=== PATIENT | male | born 1945 | race Caucasian/White ===

== ENCOUNTER 2020-06-02 11:27 | Inpatient (IN) | payer MEDICARE, OTHER ==
[~2020-06-02] VITALS: Ht 193 cm; Wt 69.4 kg
--- OUTSIDE RECORDS SUMMARY | 2020-06-02 11:30 | XMS ---
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 Frank has no Care Guidelines for this patient. Mirtha VISIT COUNT (12 MO.) 1 BEHZAD Womack TOTAL 1 NOTE: Visits indicate total known visits. ED/UCC VISIT TRACKING (12 MO.) 06/02/2020 11:27 BEHZAD Zaragoza OR TYPE: Emergency COMPLAINT: - LOC/ALTERED MENTAL STATUS INPATIENT VISIT TRACKING (12 MO.) No inpatient visits to display in this time frame [id number]
[2020-06-02] MEDS ORDERED: PREDNISONE5 MG PO (12:04)
[2020-06-02] MEDS ORDERED: TRAMADOL HCL50 MG PO (12:04)
[2020-06-02] MEDS ORDERED: CYCLOBENZAPRINE10 MG PO (12:05)
[2020-06-02] MEDS ORDERED: LEVOTHYROXINE150 MCG PO (12:05)
[2020-06-02] MEDS ORDERED: TIZANIDINE HCL2 M1 PO (12:05)
--- NOTE | 2020-06-02 16:41 | EKG ---
[facility] [address] [place], [place] [address] Signed Sinus tachycardia Possible Right ventricular hypertrophy Possible Lateral infarct , age undetermined Inferior infarct , age undetermined Abnormal ECG No previous ECGs available Confirmed by EMMA AUSTIN DO ([id number]) on 06/02/2020 4:40:51 PM Electronically Signed By: EMMA AUSTIN DO 06/02/20 1641 PATIENT NAME: JOVANIFILIPE Electrocardiogram DATE OF : 49 PHYSICIAN: EMMA AUSTIN DO REPORT #: [id number] REPORT IS CONFIDENTIAL AND NOT TO BE RELEASED WITHOUT AUTHORIZATION
--- NOTE | 2020-06-02 18:49 | NUR ---
PATIENT ADMITTED TO MED SURG, ADMISSION ASSESSMENT FOR FEED MANAGEMENT ADVISOR TO DO. PATIENT TRANSFERRED TO BED VIA 4 STAFF AND SLIDE SHEET. PATIENT HAS LR @ 125 INFUSING TO RIGHT FOREARM. DAUGHTER IN ROOM FOR TRANSFER, WENT HOME TO CHECK ON MOM, AND WILL RETURN. PATIENT HAS LEGS ON PILLOW, SEVERE CONTRACTIONS PRESENT ON BOTH UPPER AND LOWER EXTREMITIES. PATIENT HAS SUPERFICIAL SKIN BREAKDOWN, STAGE 1, TO BOTH BUTTOCKS AND SCROTAL AREA. PATIENT IS SLEEPY AFTER MOVING, APPEARS TO BE COMFORTABLE.
--- NOTE | 2020-06-02 20:45 | NUR ---
V/S AND I&O TAKEN AND RECORDED. MARTINO CARE DONE. PATIENT REFUSED TO BED REPOSITIONED STATED HE IS COMFORTABLE NOW. CALL LIGHT ON HAND.
--- NOTE | 2020-06-02 20:55 | NUR ---
TURNED, COOP, ALERT AND ORIENTED, IV SITES X2 PATENT. DRY SCALY SKIN, LOTIONS APPLIED, RED AREA L LOW SCROTAL SAC AND RAYA ARE, BARRIER CREAM APPLIED, F/C PATENT, CARE DONE AND HS CARE DONE. TOLERATING FLUIDS WELL. BANDAID OVER BRIDGE OF NOSE IN PLACE. CONTRACTURES AT ELBOWS, WRIST, FINGERS, LE BELOW KNEES ARS, R MORE THAN LEFT, LEVATED IN PILLOWS. ON ROOM AIR, DIM AT BASES, NO C/O ADVERSE REACTION TO ABX, THYROID MED 150MCG GIVEN PER ORDERS AT THIS TIME. CALL LIGHT AT HANDS REACH
--- NOTE | 2020-06-02 22:55 | NUR ---
comfortable, daughter in room,
--- NOTE | 2020-06-02 23:48 | NUR ---
c/o 4/10 shoulders and generalized pain, medicated with oxycodone 5mg po, declines to be repositioned, daughter in room had repositioned pt earlier.
--- NOTE | 2020-06-03 02:25 | NUR ---
AWAKES EASILY, DECLINES TO BE TURNED, DAUGHTER STATES SHE REPOSITIONED HIS LEG AND HEAD EARLIER. PT DENIES C/O PAIN, IVF INFUSING, TOOK SIPS OF FLUIDS. F/C WITH SMALL AMOUNT OF UO, DAUGHTER STATES THAT HE DOES NOT URINATES MUCH AT NIGHT BUT HE DOES DURING THE DAY. FALL AND ASPIRATION PRECAUTIONS INPLACE.
--- NOTE | 2020-06-03 04:47 | NUR ---
Resting, no jessica distress, IVF infsuing, f/c patent. family at bedside
--- NOTE | 2020-06-03 06:00 | NUR ---
PT HAS SLEPT OFF AND ON THIS SHIFT, HAD DECLINED TO BE TURNED, BUT TURNED AT THIS TIME. CONTRACTURES OF ALL EXTREMITIES, HANDS AND FEET PRESENT, SKIN DRY AND FLAKY. RED AREAS L SCROTAL SAC, RAYA AREA AND BUTTOCKS AREA, BARRIER CREAM APPLIED. F/C INSERTED IN ED, NOT CHRONIC, VOIDING MEDIUM YELLOW URINE QS. IVF INFUSING, NO ADVERSE REACTION TO IV ABX. MEDICATED WITH OXYCODONE 5MG X2 AND FLEXERIL PER C/O SHOULDERS AND GENERALIZED PAIN. EFFECTIVE. tOLERATING LIQUIDS WELL. oN ROOM AIR, LUNGS WITH FAINT CRACKLES AT BASES. NO RESP DISTRESS. 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 ALERT AND ORIENTED.
--- NOTE | 2020-06-03 07:17 | NUR ---
Jess from lab called with + anaerobic BC ON BOTH R AND L ARM GROWTH OF GRAM+ COCCI W CLUSTERS, INCOMING ROBERT MARINELLI NOTIFIED, HE IS TO CALL THIS AM.
--- NOTE | 2020-06-03 08:10 | NUR ---
DR AUSTIN CALLED AT [facility] AND NOTIFIED OF THE BLOOD CULTURE RESULTS.
--- NOTE | 2020-06-03 08:11 | NUR ---
PT RESTING IN HIS BED AND STATES HIS PAIN IS NOW A 4 WHICH IS CHRONIC AND ACCEPTABLE TO HIM AT THIS TIME. PT DECLINES TO BE TURNED STATING HIS DAUGHTER HAD RECENTLY REPOSITIONED HIM. HE AGREES TO A BED BATH LATER AND STATES I CAN CHECK HIS SKIN AT THIS TIME. PT HAS CONTRACTURES WITH PAIN AND POOR MOVEMENT THROUGHOUT. PT NOT ORIENTED TO DATE WHICH THE PT'S DAUGHTER STATES IS NORMAL FOR HIM. PT ORIENTED OTHERWISE. SEE ASSESSMENT.
--- NOTE | 2020-06-03 09:37 | NUR ---
COCCYX, BUTTOCKS, AND SCROTUM ALL RED, BARRIER CREAM APPLIED TO ALL AREAS AND PT REPOSITIONED THE PT OFF OF THESE AREAS. TURNING AND REPOSITIONING EDUCATION GIVEN TO THE PT AND HIS DAUGHTER (LINDA) WITH GOOD UNDERSTANDING STATED.
--- NOTE | 2020-06-03 10:59 | NUR ---
PT SLEEPING AT THIS TIME.
--- NOTE | 2020-06-03 11:29 | NUR ---
PT AWOKE FROM HIS NAP AND HE WAS REPOSITIONED AT THIS TIME. HE STATES HIS PAIN LEVEL IS ABOUT THE SAME AND HE DENIES THE NEED FOR ANY PAIN MEDICATION AT THIS TIME.
[2020-06-03] MEDS ORDERED: CRANBERRY200 MG PO (12:50)
--- NOTE | 2020-06-03 12:50 | NUR ---
NO NOTED CHAGES IN CONDITION. PT STATES HIS JOINT PAIN AT A 6 WHICH HE WAS RECENTLY TREATED FOR. SEE ASSESSMENT.
--- NOTE | 2020-06-03 12:51 | NUR ---
MED REC COMPLETE
--- NOTE | 2020-06-03 14:15 | NUR ---
I ASKED PATIENT IF HE WOULD LIKE TO BE REPOSITIONED AND HE SAID NO BECAUSE HE IS COMFORTABLE FOR RIGHT NOW. DAUGHTER IS IN ROOM.
--- NOTE | 2020-06-03 16:01 | NUR ---
Pt resting in his bed and he states he is comfortable and declines to be repositioned at this time.
--- NOTE | 2020-06-03 16:17 | NUR ---
PT NOW STATES HIS IS HAVING SOME PAIN AND WAS MEDICATED ORDERED. PT WAS JUST REPOSITIONED BY HIS DAUGHTER.
--- NOTE | 2020-06-03 17:35 | NUR ---
PT REPOSITIONED IN HIS BED BY HIS DAUGHTER. HE DENIES ANY NEEDS AND STATES HIS PAIN IS WELL CONTROLED AT THIS TIME.
--- NOTE | 2020-06-03 18:14 | NUR ---
Pt states he is comfortable and he is watching the new at this time and he denies any needs.
--- NOTE | 2020-06-03 19:23 | NUR ---
PATIENT DAUGHTER HELPED ME THIS MORNING WE GAVE HIM A BED BATH AND SHAMPOOED HIS HAIR. NEW GOWN. AND REPOSITIONED HIM.
--- NOTE | 2020-06-03 20:34 | NUR ---
Awake, alert and oriented, declines to be repositioned, aware that we need to reposition him, ok to come back at [phone] and moved med" stated. on room air. ivf infusing, sl patent. tolerating liquids well, drinking water from [facility] water receptacle brought from home by family. hob elevated. Coop with assessment. all4 limbs contractures w/o changes. red areas on psjctrm-[id number]-hlsx area present, barrier cream applied. f/c draining small amounts of yellow urine with whit sediments. normal odor. call light at hands.
--- NOTE | 2020-06-03 20:42 | NUR ---
report via phone [phone] to daughter Joan
--- NOTE | 2020-06-03 20:55 | NUR ---
SUPERVISOR CHAR HOUSE ROUNDING NOTE. PT RESTING IN BED WATCHING TV. PT REQUESTS BLANKET TO SHOULDERS, AND WASH RAG REPOSITIONED UNDER HIS CHIN. PT DENIES FURTHER NEEDS. CALL LIGHT IN REACH. WHITE BOARD UDPATED.
--- NOTE | 2020-06-03 21:58 | NUR ---
Repositioned in bed, coop
--- NOTE | 2020-06-04 02:40 | NUR ---
states comfortable, declines need to repositon self. heel protectors at elbows and heel, legs elevated. ivf infusing, f/c draining low md joey aware
--- NOTE | 2020-06-04 05:38 | NUR ---
PT HAS BEEN MEDICATED X2 WITH OXYCODONE 5MG X2 PER GENERALIZED PAIN, TOLERATED WELL, REPOSITIONED 3X THI SHIFT, ELBOW AND HEEL PROTECTORS IN PLACE, ALL 4 EXTREMITIES CONTRACTURS, BARRIER CREAM TO RED AREAS ON SCROTUM, BETWEEN BUTTOCKS AND RAYA AREA. F/C PATENT, DRAINED 1300CC LIGHT XIMENA COLORED URINE. PT DRINKING QS FLUIDS FROM KAMEL BACK FLUID SLEEVE BROUGHT FROM HOME. PT ABLE TO HOLD BETWEEN FINGERS AND DRINK W/O HELP, TOLERATING WELL, NO N/V, ASPIRATION PRECAUTIONS IN PLACE, PT ON ROOM AIR, IVF INFUSING W/O PROBLEMS, NO C/O ADVERSE REACTION TO IV ABX. VANCOMYCIN THROUGH TO BE DRAWN TODAY AT 1130. STILL WAITING ON COVID RESULTS. PT ALERT AND ORIENTED, AFEBRILE, WAITING FOR HOSPICE CONSULT.
--- NOTE | 2020-06-04 07:22 | NUR ---
0720: Pt sleeping at this time. Bailey within reach. Report received from Lizbeth JONES.
--- NOTE | 2020-06-04 09:11 | NUR ---
PT RESTING IN HIS BED AND STATES HIS PAIN IS CONTROLED. HE DECLINES TO BE TURNED AT THIS TIME STATING HE IS COMFORTABLE. WILL REASSESS THE SKIN LATER WHICH THE PT AGREES TO. MARTINO DRAINING CLEAR YELLOW URINE AT THIS TIME. SEE ASSESSMENT.
--- NOTE | 2020-06-04 09:19 | NUR ---
PT BEING FED BY THE FIREPERSON AT THIS TIME.
--- NOTE | 2020-06-04 10:26 | NUR ---
While to pt was up to the bedside commode this novoa cath slid out. It was notied by the JUNIOR WEB DEVELOPER and his daughter who were helping him that the baloon was ruptured. The baloon appears to be intact with a slit in the side of it. The pt has an open area on his left buttock that is through the first layer of skin and measures 1.5x5 cm. The site was cleaned with wound wash sprayed with skin barrier and an allevyn was applied. The pt also continues to have redness noted to the coccyx, buttocks and scrotum. Dr Byers was called and notiifed of the novoa and the skin breakdown with new orders given. A condom cath was applied as ordered.
--- NOTE | 2020-06-04 11:45 | NUR ---
Pt states he is feeling "better" at this time. Dr Byers in the room speaking with the pt and his daughter at this time.
--- NOTE | 2020-06-04 11:52 | NUR ---
THIS MORNING THE DAUGHTER AND I TRANSFERED HIM FROM HIS BED TO THE BED SIDE COMMODE. WHILE SITTING ON THE BED SIDE COMMODE THE DAUGHTER AND I GAVE HIM A BED BATH AND CHANGED HIS BED LINENS. NURSE GOT HIM A WARM BLANKET.
--- NOTE | 2020-06-04 12:25 | NUR ---
PT APPEARS COMFORTABLE AND IS WATCHING HIS TABLET WITH EAR BUDS IN AT THIS TIME.
--- NOTE | 2020-06-04 13:14 | NUR ---
PT STATES HE IS HAVING SOME GENERALIZED PAIN AND WAS MEDICATED ORDERED, SEE EMAR. SEE ASSESSMENT.
--- NOTE | 2020-06-04 15:09 | NUR ---
Pt denies any pain at this time. He states he was recently repositioned by his daughter and declines to now be repositioned.
--- NOTE | 2020-06-04 15:24 | NUR ---
Pt has not voided since his novoa came out and the condom cath was placed. Felipe states he feels fine with no distention noted. He states he will attempt to void and will notify me after he voids. Will continue to monitor.
--- NOTE | 2020-06-04 15:41 | NUR ---
Due to the pt's lack of void he was bladder scanned for [address] Byers was called and notified. If no void in a few hours rescan and notify Dr Byers, per Dr Byers.
--- NOTE | 2020-06-04 16:23 | NUR ---
Pt has voided 75 ml via his condom cath at this time, will continue to monitor.
--- NOTE | 2020-06-04 17:26 | NUR ---
Pt repositioned at this time.
--- NOTE | 2020-06-04 17:49 | NUR ---
Dr Byers called and notified of the pt's dark concentrated urine of 75 ml over the last 8 hours. New orders received.
--- NOTE | 2020-06-04 17:58 | NUR ---
Pt denies any pain or problems at this time.
--- NOTE | 2020-06-04 18:45 | NUR ---
PT VOIDED 225 ML OF DARK URINE WHICH IS FAN MAIL EDITOR IN COLOR THAN HIS LAST VOID.
--- NOTE | 2020-06-04 19:31 | NUR ---
awake, alert and oriented, visiting with family, no c/o pain
--- NOTE | 2020-06-04 21:31 | NUR ---
Repositioned in bed, tolerated well, on room air, bandaid over bridge of nose all extremities contractures, allevyn in between buttocks area, redness over periarea and l scrotal sac, barrier cream applid, condom cath in place, draining small amounts of dark yellow urine, pt tolerating well. drinking qs fluids from [facility] [employer] water reservoir brought from home. watching tv, medicatrred with oxycodone 10mg po 5/10 generalized pain.
--- NOTE | 2020-06-05 02:15 | NUR ---
RESTING, NO FURTHER C/O PAIN, DECLINES TO BE REPOSITIONED. NO C/O ADVERSE REACTION TO ABX. CONDOM CATH PATENT. FAMILY IN ROOM
--- NOTE | 2020-06-05 02:41 | NUR ---
PT CALLED FOR PAIN MEDICATION. IV SITE PINK, ASSESSMENT FURTHER, NOTED INFILTRATION. IV DC'D
--- NOTE | 2020-06-05 04:30 | NUR ---
PT AWAKE AT THIS TIME VISITING WITH DAUGHTER. PT ON ROOM AIR, CLEAR LUNGS, ABD SOFT, HAD A BM 06/04, ALL EXTREMITIES AND R NECK CONTRACTURES. TURNED 2X THIS SHIFT, DECLINES TO TURN BUT DAUGHTER DOES REPOSITONS HIS LEGS AND ARMS. PT TOLERATING FLUIDS WELL, USES HOME BROUGHT KAMEL BACK WATER RESERVOIR BAG WELL. HAS CONDOM CATH IN PLACE, DRAINING QS URINE. REDNESS OF L SCROTUM, RAYA AREA AND BUTTOKC W ALLEVYN DRESSINGL BUTTOCKS AREA. HAS BEEN MEDICATED WITH OXYCODONE 10MG PER GENERALIZED PAIN WITH GOOD PAIN RELIEF, WAITING ON HOSPICE CONSULT, HIGH FALL AND ASPIRATION PRECAUTIONS INPLACE. PT NEEDS HELPS WITH ADLS AND FEEDING, CONT TO REINFORCE NEED FOR Q2H/PRN RESPOSITIONING TO PREVENT PRESSURE ULCERS
--- NOTE | 2020-06-05 08:13 | NUR ---
PATIENT RESTING IN BED. DAUGHTER IN ROOM. CONDOM CATH STILL IN PLACE. RECIEVED WARM WASH CLOTH FOR FACE. WHITE BOARD UPDATED. CALL LIGHT WITHIN REACH. NO FURTHER NEEDS AT THIS TIME.
--- NOTE | 2020-06-05 10:10 | NUR ---
SPOKE WITH PATIENT IN ROOM. PATIENT IS [place]. STATES HE LIVES WITH AND DAUGHTER LINDA LIVES LESS THAN A MILE DOWN THE ROAD. HE STATES HE IS "BEDRIDDEN". STATES HE DOESN'T REALLY KNOW SOME OF THE QUESTIONS "MY AND DAUGHTER DO THAT STUFF". WHEN ASKED IF HE WANTS SOME INFORMATION ON HOSPICE, HE STATES "YES, WE WANT TO LOOK INTO THAT, BUT CAN YOU TALK WITH MY DAUGHTER?" TRIED TO CALL DAUGHTER LINDA STONE [phone]. LEFT MESSAGE FOR CALL BACK.
--- NOTE | 2020-06-05 14:22 | NUR ---
PATIENT RESTING IN BED. DAUGHTER IN ROOM. CALL LIGHT WITHIN REACH. WILL CHECK AGAIN LATER. NO FURTHER NEEDS AT THIS TIME.
--- NOTE | 2020-06-05 15:10 | NUR ---
PATIENT RESTING IN BED. WATER REFRESHED AND MOVED IN BED. CALL LIGHT WITHIN REACH. DAUGHTER IN ROOM. NO FURTHER NEEDS AT THIS TIME.
--- NOTE | 2020-06-05 15:15 | NUR ---
APPARANTLY DAUGHTER LINDA WAS HERE THEN LEFT. TRIED TO REACH HER AT HOME AGAIN. MESSAGE LEFT FOR CALLBACK.
--- NOTE | 2020-06-05 16:31 | NUR ---
MET WITH PATIENTS DAUGHTER LINDA IN WAITING AREA. SHE STATES HER MOM HAS HAD A LOT OF MEDICAL ISSUES AND DOES NOT THINK CLEARLY. SHE STATES HER DAD HAS NOT WALKED IN 12 YEARS, AND HAS BEEN MOSTLY BEDBOUND FOR 4 YEARS. SHE STATES HIS MIND HAS BEEN ACTIVE AND CLEAR. 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 SHE STATES HE HAS BEEN CONFUSED JUST FOR A LITTLE WHILE THIS WEEK. IT IS WHY SHE FINALLY CONVINCED HIM TO COME IN. SHE STATES HE DOES NOT LIKE GOING TO THE DOCTOR. HIS PCP JAVI PAL COMES TO THE HOUSE TO SEE HIM. SHE WAS THERE JUST FOUR DAYS AGO. SHE STATES HER DAD DOESN'T WANT TO HAVE TO BE IN THE HOSPITAL AND DEAL WITH BEING POKED AND WORKED ON. THEY HAVE TALKED ABOUT HOSPICE. SHE STATES HIS COMPANY HAS OFFERED TO FLY HIM BY MEDICAL TRANSPORT TO A [facility] SETTING FOR SPECIALISTS. BUT HE HAS NOT ACCEPTED THIS. 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 SHE STATES NO ONE HAS POA, BUT THEY ARE GOING TO CONTACT THE GLASS CARRIER THEY KNOW TO FINALIZE PAPERWORK. SHE STATES HE HAS MEDICARE AND THEN THEY HAVE FUNDS TO PAY FOR WHAT ELSE IS NEEDED. 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 HE HAS POWER CHAIR. SHE STATES WHEN HE GOES ON HOSPICE THEY WILL NEED A HOSPITAL BED. WE DISCUSSED POSSIBLE HOSPICE AGENCIES AVAILABLE. THEY WOULD LIKE TO GO WITH [facility]. 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 SHE STATES THEY ALL LIVE CLOSE ON THE FARM BUT SHE WILL PROBABLY TAKE HIM TO HER HOME SO SHE CAN BE THERE. SHE IS RETIRED NOW. QUESTIONS ANSWERED. SHE STATES THEY WOULD LIKE THE ANTIBIOTIC THERAPY FINISHED THIS TIME, THEN HOME WITH HOSPICE. DISCUSSED I WILL CALL [facility] TOMORROW. CM WILL FOLLOW NEEDED.
--- NOTE | 2020-06-05 18:15 | NUR ---
PATIENT REPOSITIONED IN BED. CALL LIGHT WITHIN REACH NO FURTHER NEEDS AT THIS TIME. VISITING WITH SON IN ROOM.
--- NOTE | 2020-06-05 19:49 | NUR ---
BEDSIDE REPORT RECEIVED FROM ROBERT PEARSON. pt RESTING IN BED. DENIES REQUESTS AT THIS TIME. CALL LIGHT IN REACH. FAMILY AT BEDSIDE.
--- NOTE | 2020-06-05 21:07 | NUR ---
pt ASSESSMENT COMPLETE. RATES PAIN 5-6/10 "ALL OVER, IT WILL BE GOOD IF WE KEEP IT RIGHT HERE". PRN MEDICATION ADMINISTERED. REPOSITIONED. FAMILY AT BEDSIDE. VSS. CALL LIGHT IN REACH.
--- NOTE | 2020-06-05 23:33 | NUR ---
pt AWAKE IN ROOM, WATCHING TV. IV ANTIBIOTIC INFUSING ORDERED. CONCRETE BUCKET LOADER SINTA IN ROOM EMPTYING URINE FROM CATHTER. DAUGHTER AT BEDSIDE. NO REQUESTS AT THIS TIME.
--- NOTE | 2020-06-06 01:20 | NUR ---
IN pt ROOM FOR IV ANTIBIOTIC ADMINISTRATION. pt SLEEPING, BREATHING UNLABORED. DAUGHTER AT BEDSIDE. MARTINO DRAINING YELLOW URINE.
--- NOTE | 2020-06-06 03:29 | NUR ---
pt SLEEPING, AWAKENS TO VOICE FOR REPOSITIONING. pt RATES PAIN 5-5.5/10, PRN PAIN MEDICATION ADMINISTERED. REPOSITIONED IN BED WITH INFECTIOUS WASTE TECHNICIANHafsa ANDRESW ASSIST. ASSESSMENT COMPLETE. CALL LIGHT AND REMOTE IN REACH. DAUGHTER IN ROOM.
--- NOTE | 2020-06-06 06:50 | NUR ---
pt SLEEPING, AWAKENS TO VOICE FOR VS. PRN PAIN MEDICATION ADMINISTERED FOR 5/10 REPORTED PAIN. SCHEDULED ANTIBIOTIC INFUSING WNL ORDERED. pt REFUSES REPOSITIONING AT THIS TIME, REQUESTING TO GO BACK TO SLEEP. DRINKS OF WATER PROVIDED. CALL LIGHT IN REACH. DAUGHTER IN ROOM.
--- NOTE | 2020-06-06 07:31 | NUR ---
REPORT RECEIVED. PT IN BED WITH EYES CLOSED. CALL LIGHT IN REACH
--- NOTE | 2020-06-06 08:36 | NUR ---
PATIENT STILL ASLEEP. FAMILY IN ROOM. CALL LIGHT WITHIN REACH. WILL CHECK BACK WITH PATIENT LATER.
--- NOTE | 2020-06-06 09:26 | NUR ---
H&P, progess notes, medicare card, face sheet, covid test, faxed to [facility].
--- NOTE | 2020-06-06 11:15 | NUR ---
PT REPORTING 6/10 PAIN. REQUESTING PAIN MEDS AND FLEXERIL. MEDICAITONS ADMINISTERED.
--- NOTE | 2020-06-06 12:35 | NUR ---
ABX STARTED. PT REPORTING PAIN 02/10. DENIES NEED FOR REPOSITIONING. FAMILY AT BEDSIDE.
--- NOTE | 2020-06-06 13:00 | NUR ---
Called and spoke with Yordan from [facility] as I have not received a return call. She states she has received the chart, they are working on it.
--- NOTE | 2020-06-06 13:47 | NUR ---
PATIENT REPOSITIONED. VISITING WITH SON IN ROOM. CALL LIGHT WITHIN REACH. NO FURTHER NEEDS AT THIS TIME.
--- NOTE | 2020-06-06 14:00 | NUR ---
REPORTSITIONED NAD CHANGED LINENS.. PT TOLERATED WELL. PERSONAL ITMES WITHIN REACH.
--- NOTE | 2020-06-06 18:24 | NUR ---
IN TO REASSESS PAIN. REPORTS PAIN 5/10. FINISHED DINNER. REPORTS EATING TOO MUCH. NOW COUGHING UP FOOD FROM DINNER HE REPORTS BEING STUCK IN ESOPHOGOUS. BREATHING WITH NO PROBLEMS. OFFERED SUCTION AND PT REFUSED. ELEVATED HOB. EMESIS BAG PROVIDED. NO VOMITING, JUST THICK WHITE MUCOUS PRESENT.
--- NOTE | 2020-06-06 18:38 | NUR ---
ASKED PATIENT THREE TIMES FOR 1800 VITALS. PATIENT REFUSED. ROBERT PEARSON AND ROBERT BILLINGS NOTIFIED.
--- NOTE | 2020-06-06 19:30 | NUR ---
BEDSIDE REPORT RECEIVED FROM ROBERT PEARSON. pt AWAKE, SITTING UP IN BED, SOME REGURGITATION NOTED AFTER EATING DINNER PER pt. DENIES NEED, WATER IN REACH. pt RATES PAIN "LOW 5". CALL LIGHT IN REACH. SON AT BEDSIDE.
--- NOTE | 2020-06-06 21:09 | NUR ---
pt AWAKE, CONTINUES TO SPIT CLEAR LIQUID. ASSESSMENT COMPLETE. RATES PAIN 5/10. UNABLE TO ADMINISTER PO MEDICATIONS AT THIS TIME. IV ANTIBIOTIC INFUSING WNL ORDERED. ASSISTED TO REPOSITION. CONDOM CATHETER EMPTIED. CALL LIGHT IN REACH. FAMILY AT BEDSIDE.
--- NOTE | 2020-06-06 23:50 | NUR ---
pt AWAKE, WATCHING MOVIE ON TABLET. SON AT BEDSIDE. IV ANTIBIOTIC INFUSING WNL ORDERED. PRN PAIN MEDICATION ADMINISTERED FOR "HIGH 5/10" REPORTED PAIN. pt STATES "STILL HAVING TROUBLE GETTING FOOD DOWN". CONGESTION, CLEARING OF THROAT NOTED. HOB IS ELEVATED. CALL LIGHT IN REACH.
--- NOTE | 2020-06-07 00:55 | NUR ---
pt C/O NAUSEA, PRN MEDICATION ADMINISTERED. REPOSITIONED IN BED. DAUGHTER AT BEDSIDE, REFILLING ICE WATER IN DRINK BAG. IV ANTIBIOTIC INFUSING WNL. CALL LIGHT IN REACH.
--- NOTE | 2020-06-07 02:46 | NUR ---
pt AWAKE, WATCHING TV ON TABLET. HOB ELEVATED. pt STATES "FINALLY GETTING OVER WHATEVER IT WAS". ASSISTED WITH HEADPHONE EAR PIECE. NO ADDITIONAL REQUESTS.
--- NOTE | 2020-06-07 04:53 | NUR ---
CALL LIGHT ANSWERED. pt ASSESSMENT COMPLETE. C/O PAIN "HIGH 5" ALL OVER. REPOSITIONED IN BED WITH 2PA, PILLOWS FOR COMFORT. PRN MEDICATION ADMINISTERED. pt SPITTING OUT LIQUID AFTER INGESTION OF PO MEDICATIONS. DAUGHTER AT BEDSIDE.
--- NOTE | 2020-06-07 06:19 | NUR ---
pt AWAKE RESTING IN BED, REQUESTING TO WAIT FOR PO THYROID MEDICATION DOESN'T THINK HE CAN KEEP A PILL DOWN AT THIS TIME. REPOSITIONED IN BED WITH 2PA. SCHEDULED IV ANTIBIOTIC INFUSING WNL ORDERED. CALL LIGHT IN REACH. DAUGHTER AT BEDSIDE.
--- NOTE | 2020-06-07 06:24 | NUR ---
pt UNCOMFORTABLE FOR MOST OF SHIFT, SPITTING UP COPIOUS AMTS CLEAR SECRETIONS. PRN NAUSEA MEDICATION X 1 AFTER EATING HAMBURGER PER pt. REPOSITIONING THROUGHOUT SHIFT TOLERABLE. DAUGHTER AT BEDSIDE ASSISTING WITH pt CARES. QS URINE OUTPUT WITH CONDOM CATHETER. BED BOUND.
--- NOTE | 2020-06-07 07:10 | NUR ---
BEDSIDE HANDOFF REPORT RECEIVED FROM SPECIAL EDUCATOR RN. PT SLEEPING, LEFT UNDISTURBED.
--- NOTE | 2020-06-07 09:35 | NUR ---
Spoke with Nayeli from [facility]. She is awaiting signed orders from pt's pcp. Orders will not be completed until tomorrow. Pt is scheduled for admission on Friday at 2pm. Nayeli will call and confirm admission tomrrow. She has already spoke with pt's daughter Joan, about DME and admission.
--- NOTE | 2020-06-07 09:52 | NUR ---
ASSISTED JENNY IN REPOSITIONING PATIENT IN BED, SON IN ROOM WELL. VITALS AND I&OS CHARTED. MARTINO EMPTIED, PATIENT REFUSED BREAKFAST, WILL TRY LUNCH. CALL LIGHT IN REACH, NO OTHER NEEDS AT THIS TIME
--- NOTE | 2020-06-07 10:00 | NUR ---
DR MIERLES AT BEDSIDE EVALUATING PT, WILL ADJUST MEDICATIONS. PT ON ROOM AIR, LUNG SOUNDS CLEAR. PT WITH LESS SPITTING UP THIS AM, GOING TO TRY TO EAT SOME BREAKFAST. PT WITH HX RHEUMATOID ARTHRITIS, WEAKNES SIN ALL EXTREMITIES, PULSES PALPABLE AND STRONG. PT WITH CONDOM CATH IN PLACE. BOWEL TONES ACTIVE. PT TOOK MORNING MEDICATIONS WITHOUT DIFFICULTY. PT DENIES OTHER NEEDS AT THIS TIME.
--- NOTE | 2020-06-07 11:30 | NUR ---
Spoke with pts daughter Joan, she states she plans on pt discharging to her house. Let her know I will notify hospice. [place] [id number], [place]. Daughter is Joan [phone]. Joan is preparing for discharge. DME, meds, and supplies will be provided by hospice.
--- NOTE | 2020-06-07 13:00 | NUR ---
PT RESTING IN BED. IV VANCO INFUSING PER ORDER. PT DENIES OTHER NEED AT THIS TIME.
--- NOTE | 2020-06-07 13:56 | NUR ---
Called and spoke with Yordan from [facility]. New address given with daughters phone number and name.
--- NOTE | 2020-06-07 14:09 | NUR ---
PATIENT AWAKE IN BED, FAMILY IN ROOM. PATIENT REFUSED LUNCH, HAS NO OUTPUT SINCE AM. CALL LIGHT IN REACH.
--- NOTE | 2020-06-07 17:38 | NUR ---
PATIENT AWAKE IN BED, DAUGHTER IN ROOM. PATIENT'S CONDOM CATH SLIPPED OFF AT SOME POINT AND WAS SATURATED UNDERNEATH. PATIENTS DAUGHTER AND I CHANGED LINENS AND BRIEF. NEW CATH PLACED. PATIENT IS DRY AND COMFORTABLE. CALL LIGHT IN REACH. DINNER IS DELIVERED, PATIENT NOT INTERESTED IN EATING.
--- NOTE | 2020-06-07 17:51 | NUR ---
BLADDER SC PER RN. 2-13 ML.
--- NOTE | 2020-06-07 18:00 | NUR ---
PT RESTING IN BED. PT RATIN GPAIN ABOUT THE SAME. PT DOES NOT WANT TO EAT DINNER. PT DENIES OTHER NEEDS AT THIS TIME.
--- NOTE | 2020-06-07 19:25 | NUR ---
SHIFT REPORT FROM NURSE WALSH. PT IN BED, AWAKE AND ORIENTED. PT'S SON AT BEDSIDE CHAIR. NO REQUESTS AT THIS TIME.
--- NOTE | 2020-06-07 20:45 | NUR ---
ASSESSMENT COMPLETE. CONDOM CATHETER WAS KINKED AND SLIPPING OFF PENIS. CONDOM CATHETER REPLACED. PT REFUSES DINNER. STATES HE DOESNT WANT TO "DEAL WITH" THE EFFECTS AFTER LIKE COUGHING AND SPUTUM. VSS. PT SWALLOWED EVENING PILLS EASILY. PT'S SON IS IN ROOM IN CHAIR. PT IS ORIENTED AND TALKATIVE. NO FURTHER NEEDS AT THIS TIME. CALL LIGHT WITHIN REACH.
--- NOTE | 2020-06-08 00:31 | NUR ---
PT'S SON WENT HOME PT'S DAUGHTER ARRIVED. PT'S DAUGHTER REQUESTS PRN ZOFRAN PT HAS BEEN HAVING A LOT OF REFLUX/BELCHING. PT HAS PAIN OF 5/10 BUT REQUESTS IV MEDS PT DOES NOT WANT TO TAKE ANY ORAL MEDS D/T REFLUX. PRN IV MORPHINE 1MG PROVIDED. PT REPOSITIONED WITH HELP FROM PT'S DAUGHTER. CONDOM CATHETER STILL INTACT. NO FURTHER NEEDS AT THIS TIME.
--- NOTE | 2020-06-08 03:19 | NUR ---
ROUNDS COMPLETE. PT IN BED WITH EYES CLOSED. APPEARS TO BE SLEEPING. NO APPARENT SIGNS OF DISTRESS. PT'S DAUGHTER SLEEPING IN CHAIR AT BEDSIDE.
--- NOTE | 2020-06-08 06:04 | NUR ---
ASSESSMENT COMPLETE. PT WAS AWAKE THIS NURSE ENTERED THE ROOM. PT AGREES TO MORNING FLEXERIL AND LEVOTHYROXINE.PT REPORTS THAT HE WOKE FEELING "MUCH BETTER TODAY". VSS. PAIN 5/10. BOWEL TONES HYPOACTIVE. URINE OUTPUT EXCELLENT. DAUGHTER IN ROOM WITH PT. NO FURTHER NEEDS AT THIS TIME. CALL LIGHT WITHIN REACH
--- NOTE | 2020-06-08 07:30 | NUR ---
REPORT RECEIVED FROM ROBERT MENON. PT RESTING IN BED IN RELAXED POSITION. PT APPEARS COMFORTABLE AND PTS DAUGHTER AGREES. PTS DAUGHTER STATES PT HAS REQUESTED JELLOW, ORDER PLACED. NO ADDITIONAL REQUESTS OR COMPLAINTS AT THIS TIME. CALL LIGHT WITHIN REACH. BED RAILS UP.
--- NOTE | 2020-06-08 10:08 | NUR ---
MORNING ASSESSMENT AND MEDICATION DUE. PT RESTING IN BED. PT AWAKEN AND TALKATIVE. PT RESPONDING TO QUESTIONS APPROPRAITLY. PT NOT ORIENTED TO PLACE OR DATE BUT OTHERWISE ORIENTED. LUNG SOUNS WHEEZY. PT ENCORUAGED TO COUGH AND DEEP BREATH. PT CONTINUES TO HAVE DIFFICULTY SWALLOWING. PT TAKES MEDICATIONS BUT CLEARS THROAT FREQUENTLY. BOWEL TONES HYPOACTIVE, PT ENCOURAGED TO DRINK MIRLAX. SMALL SIPS TAKEN. CONDOM CATH IN PLACE WITH GOOD DRAINAGE. PT REPOSITIONED TO LEFT SIDE. PT WATCHING TV. NO ADDITIONAL REQUESTS OR COMPLAINTS AT THIS TIME. CALL LIGHT WITHIN REACH. SON AT BEDSIDE. IV ABX COMPLETE. IV AT TKO RATE AT THIS TIME.
--- NOTE | 2020-06-08 10:50 | NUR ---
THIS RN TO ROOM TO CHECK ON PT. PT RESTING IN BED. PT REPORTS PAIN IS "BETTER" NOW 02/10. PT WATCHING TV. PT ASSISTED WITH DRINKING MIRALAX. NO ADDITIONAL REQUESTS OR COMPLAINTS. CALL LIGHT WITHIN REACH. SON AT BEDSIDE.
--- NOTE | 2020-06-08 13:10 | NUR ---
NOON ASSESSMENT AND MEDICATION DUE. PT RESTING IN BED. PT REPOSISIOTNED TO BACK. PT DENIES NEED FOR PAIN MEDICAITON AT THIS TIME REPORTING PAIN AT 4/10. PT ORIENTED TO ALL AT THIS TIME. ANSWERING QUESTIONS APPROPRIATLY. PT DECLINES LUNCH. BOWEL TONES CONTINUE TO BE HYPOACTIVE. ASSISTED WITH DRINKING REMAINING MIRALAX. CONDOMCATHETER WNL. NEW WARM BLANKETS PROVIDED. PTS HANDS AND FEET POSITIONED WITH PILLOWS FOR COMFORT. PT RPOETS FEELING COMFORTABLE. ABX STARTED. NO ADDITIONAL REQUESTS OR COMPLAITNS AT THIS TIME. PTS AT BEDSIDE. CALL LIGHT WITHIN REACH.
--- NOTE | 2020-06-08 14:17 | NUR ---
THIS RN TO ROOM TO CHECK ON PT. PT VISITING WITH . PT CONTINUES TO REPORTS 4/10 PAIN AND DENIES NEED FOR MEDICATION. PT REPOSITIONED TO RIGHT SIDE. NO ADDITIONAL REQUESTS OR COMPLAINTS. CALL LIGHT WITHIN REACH. PT EASILY VIEWED FROM NURSES STATION.
--- NOTE | 2020-06-08 14:19 | NUR ---
patient refused bed bath. is in the room. he says he not drinking fluids because of his throught. nurse notified. call light in reach. got patient to drink a little bit of water. he is resting in the bed. no further needs at this time.
--- NOTE | 2020-06-08 14:29 | NUR ---
PT HERE FOR ONGOING PANCREATITIS. PT UP WITH 1 PERSON ASSIST TO BATHROOM AND CHAIR. PT REMAINS NPO WITH NG TUBE IN PLACE. NO GAS PASSED OR BOWEL MOVEMENT NOTED. PAIN CONTROLED BY BUTTONHOLE MACHINE OPERATOR. EDUCATION WITH PT COMPLETED REGARDING BUTTONHOLE MACHINE OPERATOR USE. NG TUBE TO LOW INTERMITANT SUCTION WITH SMALL AMOUNT OF OUTPUT THIS SHIFT. IV POTASSIUM, TPN AND BUTTONHOLE MACHINE OPERATOR INFUSING THROUGH CENTRAL LINE. LAPAROSCOPIC INCISIONS REMAIN C/D/I WITH EDGES WELL APROXIMATED. PT VOIDING QUANTITY SUFFICNET. PT USES CALL LIGHT APPROPRIATLY. AT BEDSIDE.
--- NOTE | 2020-06-08 14:36 | NUR ---
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 IV ABX GIVEN. PT BED BOUND PER BASELINE WITH SEVERE CONTRACTURES. PAIN WELL CONTROLED THIS SHIFT WITH FENTANYL PATCH AND PRN BREAKTHROUGH MEDICATIONS. CONDOM CATHETER IN PLACE PER PTS PREFERENCE/BASELINE. PT VOIDING QUANTITY SUFFICNET. PT TOLERATING LITTLE PO, DIFFICULTIES WITH SWALLOWING, REMAINS ON SOFT DIET. PT ASSISTED WTIH PO INTAKE. FAMILY REMAINS AT BEDSIDE THROUGHOUT THE DAY. PT DOES NOT USE CALL LIGHT.
[2020-06-08] MEDS ORDERED: CYCLOBENZAPRINE10 MG PO (15:53)
[2020-06-08] MEDS ORDERED: OXYCODONE HCL5 MG PO (15:54)
[2020-06-08] MEDS ORDERED: PREDNISONE20 MG PO (15:55)
[2020-06-08] MEDS ORDERED: FENTANYL1 EAC4 TD (15:55)
[2020-06-08] MEDS ORDERED: POLYETHYLENE GL17 GM PO (15:56)
[2020-06-08] MEDS ORDERED: PRIMSOL50 MG/5 ML PO (15:57)
[2020-06-08] MEDS ORDERED: MORPHINE S10 MG/5 ML PO (16:00)
[2020-06-08] MEDS ORDERED: ZOFRAN4 MG PO (16:01)
--- NOTE | 2020-06-08 16:57 | NUR ---
AFTERNOON ASSESSMENT DUE. PT REPORTS 5/10 GENERALIZED PAIN. SEE MAR FOR MEDICAITON GIVEN. PT DENIES NAUSEA. DEPENDS NOTED TO BE WET, DEPENDS CHANGED, RAYA CARE DONE. NEW ALLEVYN TO GLUTEAL AREA. SHEETS CHANGED. PT REPOSITIONED WITH HIPS FLOATING. PT POSITIONED WITH PILLOWS, HEALS FLOATING, ARMS SUPPORTED. BOWEL TONES HYPOACTIVE. LUNG SOUNDS CLEAR AT THIS TIME. PT COUGHS AT TIMES ESPICIALLY WHEN DRINKING WATER. HEAD OF BED ELEVATED FOR ASPIRATION PRECAUTIONS. IV ABX INFUSION COMPLETE. NS AT TKO VIA IV PUMP. VITALS TAKEN. NO ADDITIONAL REQUESTS OR COMPLAINTS. ICE CREAM PROVIDED PER PT REQUEST FOR DINNER. CALL LIGHT WITHIN REACH. FAMILY AT BEDSIDE.
--- NOTE | 2020-06-08 17:30 | NUR ---
THIS RN TO ROOM TO CHECK ON PT. WHEN ASKED ABOUT PAIN, PT STATES "I'M HARDLY FEELING ANYTHING." PT WAITING FOR ICE CREAM FROM KITCHEN, KITCHEN CALLED AGAIN. PT DENIES ADDITIONAL REQUESTS OR COMPLAINTS. CALL LIGHT WITHIN REACH. BED RAILS UP. FAMILY AT BEDSIDE.
--- NOTE | 2020-06-08 21:59 | NUR ---
Pt repositioned in bed, moist productive cough of thick yellow oral phegm present, lungs dim at bases, all extremities contractures, legs elevated in pillows. Condom cath in place, draining QS yellow urine, declines to be turned at this time, reporioned heal and legs at thist ubaldo. abx infusing w/o problems, hob elevated, declines muscle relaxer. Coop with assessment
--- NOTE | 2020-06-09 00:37 | NUR ---
IV abx infusing, tolerating well, resting, eyes closed, no distress,
--- NOTE | 2020-06-09 05:50 | NUR ---
PT HAS SLEPT MOST OF THIS SHIFT, ON ROOM AIR, LUNGS DIM AT BASES, HAS MOIST PRODUCTIVE COUGH OF THICK YELLOW-CREAMY PHLEGM, ASPIRATION PRECAUTIONS IN PLACE. NO BM THI SSHIFT. DECLINE FLEXERIL, TOOK OXYCODONE 5MG PO X1 PER GENERALIZED L HAND PAIN, WITH GOOD PAIN CONTROL, REPOSITIONED 2X THI SSHIFT, ALLEVYN L BUTTOCKS IN PLACE, EDEMAOUTS SCROTUM AREA, CONDOM CATH IN PLACE, PATENT, CONTRACTURES ALL 4 LIMBS CHRONIC. COOP WITH ASSESSMENTS, PT TO GO ON HOSPICE CARE TODAY
--- NOTE | 2020-06-09 07:17 | NUR ---
REPORT RECEIVED FROM ROBERT HERNANDEZ. PT RESTING IN BED WITH EYES CLOSED. RESPIRATIONS EVEN AND UNLABORED. CONDOM CATHETER DRAINING TO GRAVITY. CALL LIGHT WITHIN REACH. BED RAILS UP. PT EASILY VIEWED FROM NURSES STATION. PT ALLOWED TO REST.
--- NOTE | 2020-06-09 08:24 | NUR ---
ASSISTED ROBERT GODFREY IN REPOSITIONING PATIENT. BRIEF WAS DRY, CONDOM CATH REPLACED, CREAM ON BUTTOCKS. FEET AND ELBOWS ELEVATED. FACE WASHED AND LOTIONED. CALL LIGHT IN REACH. WARM BLANKET
--- NOTE | 2020-06-09 08:37 | NUR ---
MORNING ASSESSMENT AND MEDICATION DUE. PT FOUND LYING ON RIGHT SIDE WITH HEAD AGAINST BED RAILS. PT REPORTS 5/10 PAIN, FENTANYL PATCH APPLIED. PT DENIES NEED FOR ADDITIONAL PAIN MEDICAITON. ASSESSMENT DONE. SKIN ASSESSED, ALLEVYN TO GLUTEAL AREA C/D/I, RAYA AREA AND GLUTEAL AREA RED. RAYA CARE DONE AND BARRIER CREAM APPLIED. CLEAN DEPENDS IN PLACE. CONDOM CATHETER CHANGED. DRAINING WELL. ABDOMEN NOTED TO BE FIRM. MEDICATION GIVEN, PT ABLE TO SWALLOW PILLS BUT BEGINS COUGHING WITH EXCESSIVE FLUIDS. SMALL SIPS GIVEN. PT REQUESTS JELLOW, PROVIDED AND GIVEN IN SMALL INFREQUENT BITES. LUNG SOUNDS CLEAR. HEAD OF BED ELEVATED FOR ASPIRATION PREDCAUTIONS. PTS DAUGHTER AT BEDSIDE, STATES THAT THE HOME HOSPITAL BED WILL ARRIVE AT 1100AM AND HOSPICE IS EXPECTED AT 1400. IV CONTINUES TO SHOW BRISK BLOOD RETURN. NO ADDITIONAL REQUESTS OR COMPLAINTS AT THIS TIME. CALL LIGHT WITHIN REACH. DAUGHTER AT BEDSIDE. BED RAILS UP.
--- NOTE | 2020-06-09 09:26 | NUR ---
Called [facility], they will transport pt to daughter's home at 1 pm. Charge nurse aware. Called and updated [facility].
--- NOTE | 2020-06-09 09:48 | NUR ---
THIS RN TO ROOM TO CHECK ON PT. ABX DUE. CEFEPIME INFUSION COMPLETE. IV ASSESSED, WNL. BRISK BLOOD RETURN NOTED. VANCOMYOCIN STARTED. PT REPORTS 5/10 PAIN AND DENCLINES ADDIITONAL MEDICAITON. PT CONTINUES TO HAVE GURGGLING SOUNDS IN THROAT. NO ADDITIONAL REQUESTS OR COMPLAINTS AT THIS TIME. CALL LIGHT WITHIN REACH. SON AT BEDSIDE. PT EASILY VIEWED FROM NURSES STATION.
--- NOTE | 2020-06-09 10:03 | NUR ---
SON IN ROOM, VITALS AND I&OS CHARTED. MARTINO EMPTIED. DENIES ANY OTHER NEEDS AT THIS TIME
[2020-06-09] MEDS ORDERED: SULFAMETHOXAZO473 M2 PO (11:12)
--- NOTE | 2020-06-09 11:52 | NUR ---
THIS RN TO ROOM TO CHECK ON PT. PT NOTED TO BE WET, BED SATURATED WITH URINE. CONDOM CATHETER DISLODGED. PT REPORTS 5/10 GENERALIZED PAIN AND AGREES TO PAIN MEDICTION. SEE MAR FOR MEDICATION GIVE. LINENS CHANGED, RAYA CARE DONE. FRESH DEPENDS IN PLACE. CONDOM CATHETER CHANGED. PT REFUSES REPOSITIONING AT THIS TIME AND STATES "I REALLY JUST WANT TO STAY ON MY BACK." PT CONTINUES TO HAVE GURGLING NOISES FROM THROAT. SUCTION OFFERED, PT DECLINES. PT ABLE TO TALK IN SENTENCES. PT REPORTS HE IS FEELING COMFORTABLE. HEAD OF BED ELEVATED FOR ASPIRATION PRECAUTIONS. NO ADDITIONAL REQUESTS OR COMPLAINTS. CALL LIGHT WITHIN REACH. PTS SON AT BEDSIDE.
--- NOTE | 2020-06-09 12:28 | NUR ---
DISCHARGE VITALS CHARTED. IV REMOVED.
--- NOTE | 2020-06-09 12:51 | NUR ---
[facility] TRANSPORT [facility] EXPECTED SHORTLY. PT AND FAMILY READY FOR DISCHRAGE. PHARCIST TO BEDSIDE TO REVIEW MEDICATIONS. PT READY FOR DISCHARGE. PT DECLINES CLOTHING AND SCRUB PANTS STATING HE WOULD LIKE TO JUST GO IN HIS HOSPITAL GOWN. IV DC'D PER PROTOCOL. GAUZE AND COBAN APPLIED. VITALS TAKEN. DISCHRAGE PLAN REVIEWED WITH PT. PT VERBALIZES UNDERSTANDING. PTS CAREGIVERS VERBALIZE UNDERSTANDING AND [facility] BED AND SUPPLIES ARE SET UP AT HOME. PT REPORTS 5/10 PAIN AND STATES THE PAIN MEDICATION "HELPED." NO ADDITIONAL REQUESTS OR COMPLAINTS. AWIATING [facility].
--- NOTE | 2020-06-09 13:02 | NUR ---
HAND OFF REPORT GIVEN TO ROBERT CORREIA. WHO WILL BE ASSUMING CARE OF PT AND ASSISTING WITH REMAINDER OF DISCHRAGE. QUESTIONS ASKED AND ANSWERED.
--- NOTE | 2020-06-09 13:31 | NUR ---
[facility] HERE TO TRANSPORT PATIENT HOME.
== END 2020-06-09 13:20 | disposition home or self-care (01) | DRG 872 ==
LOC: ED 11:27 → MS 11:28
PROVIDERS: ADMIT Student in an Organized Health Care Education/Training Program
DX: A41.01 Sepsis due to Methicillin susceptible Staphylococcus aureus (principal); N20.1 Calculus of ureter; M00.9 Pyogenic arthritis, unspecified; A41.02 Sepsis due to Methicillin resistant Staphylococcus aureus; M08.00 Unspecified juvenile rheumatoid arthritis of unspecified site; E03.9 Hypothyroidism, unspecified; K22.9 Disease of esophagus, unspecified; R13.10 Dysphagia, unspecified; Z66 Do not resuscitate
CPT/HCPCS: 36415; 51702; 71045; 74177; 80048; 80053; 80202; 81001; 83605; 85025; 87040; 87077; 87088; 87186; 93005; 93010; 99285-25; J0692; J0696; J1170; J1720; J2270; J2405; J3370; J7060; J7121; J7512; Q9967; U0002

== ENCOUNTER 2020-07-12 11:51 | Emergency (ER) | payer MEDICARE ==
[~2020-07-12] VITALS: Ht 193 cm; Wt 69.4 kg
--- OUTSIDE RECORDS SUMMARY | ~2020-07-12 | XMS | Encounter Summary ---
Demographics + + + | Address | [address] | | | [place] [address] | + + + | Home Phone | | + + + | Preferred Language | Unknown | + + + | Marital Status | | + + + | Advent Affiliation | Unknown | + + + | Race | White | + + + | Ethnic Group | Not or | + + + Author + + + | Author | [facility] | + + + | Organization | [facility] | + + + | Address | Unknown | + + + | Phone | Unavailable | + + + Support + + +---------+ + | Name | Relationship | Address | Phone | + + +---------+ + | Joan Diaz | ECON | Unknown | | + + +---------+ + Care Team Providers + +------+ + | Care Fancy Needleworker Name | Role | Phone | + +------+ + PCP | Unavailable | + +------+ + Reason for Visit + +--------+ + | Reason | Onset | Comments | | | Date | | + +--------+ + | Care Coordination | 06/30/ | | | | 2020 | | + +--------+ + Encounter Details +--------+ + + + + | Date | Type | Department | Care Team | Description | +--------+ + + + + | 06/30/ | Telephone | [facility] | Meghan Sandoval, | Care Coordination | | 2020 | | Clinics at | RN [address] [facility] | | | | | [place] [address] | | | | | [place] for | [place], [place] | | | | | Health and Healing, | [address] | | | | | [address] | [phone] | | | | | [place], [place] | | | | | | [address] | | | | | | [phone] | | | +--------+ + + + + Social History + +-------+ +--------+------+ | Tobacco Use | Types | Packs/Day | Years | Date | | | | | Used | | + +-------+ +--------+------+ | Never Assessed | | | | | + +-------+ +--------+------+ + + + | Sex Assigned at | Date Recorded | | | | + + + | Not on file | | + + + documented as of this encounter Miscellaneous Notes Telephone Encounter - Meghan Sandoval, ROBERT - 06/30/2020 4:36 PM Perfecto returned my call t sommer and we spoke. I did speak with Hemphill employer on Friday and we discussed the local p kelil reaching out to the provider line and working to have Mario transferred to [facility]. To complicate the original conversation, Mario has been discharge from the local hospital where he was admitted for sepsis from a necrotic hip joint. 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 I spoke at length with Joan and we determined that the most acute problem is the sepsis. He has not had follow up with a provider since being discharged from the hospital. Without yue nuno being admitted to the hospital and transferred to the higher level of care, there is no gu arantee that he would be admitted to [facility] even if they brought him over. Our discussion settled on Joan getting him into his primary care this next week for lab work and follow up with the sepsis. If he were to be readmitted then I will work with local pro viders to facilitate Him being transferred to the higher level of care at [facility]. Joan will be calling me next week so I can continue to help with her dad's care. Electronically paresh d by Meghan Sandoval RN at 06/30/2020 4:50 PM PDTdocumented in this encounter Plan of Treatment Not on filedocumented as of this encounter Visit Diagnoses Not on filedocumented in this encounter"
--- OUTSIDE RECORDS SUMMARY | ~2020-07-12 | XMS | Encounter Summary ---
Demographics + + + | Address | [address] | | | [place] [address] | + + + | Home Phone | | + + + | Preferred Language | Unknown | + + + | Marital Status | | + + + | Congregational Affiliation | Unknown | + + + | Race | White | + + + | Ethnic Group | Not or | + + + Author + + + | Author | [facility] | + + + | Organization | [facility] | + + + | Address | Unknown | + + + | Phone | Unavailable | + + + Support + + +---------+ + | Name | Relationship | Address | Phone | + + +---------+ + | Joan Diaz | ECON | Unknown | | + + +---------+ + Care Team Providers + +------+ + | Care Assistant Refinery Operator Name | Role | Phone | + +------+ + | Marcie Reich PA-C | PCP | | + +------+ + Reason for Visit + +--------+ + | Reason | Onset | Comments | | | Date | | + +--------+ + | Care Coordination | 07/05/ | | | | 2020 | | + +--------+ + Encounter Details +--------+ + + + + | Date | Type | Department | Care Team | Description | +--------+ + + + + | 07/05/ | Telephone | [facility] | Meghan Sandoval, | Care Coordination | | 2020 | | Clinics at S | RN [address] | | | | | [place] [address] | | | | | [place] [facility] | [place], [place] | | | | | Health and Healing, | [address] | | | | | [facility] [address] | [phone] | | | | | [place], [place] | | | | | | [address] | | | | | | [phone] | | | +--------+ + + + [...] encounter Miscellaneous Notes Telephone Encounter - Meghan Sandoval RN - 07/05/2020 10:46 AM MARTII called and spoke scarlet Franco today. As we discussed in our conversation on Friday she is working with her dads meena sewell to address the most critical needs first. The primary has come out to their house to see her dad and draw blood. The provider has reached out to the [facility] joint team to atif owens moving him here for treatment of his infected and necrotic hip. She is awaiting the f inal word from that team and then she will arrange for helicopter transportation to [facility]. Umu loomis suggestion to her is once he is stable from the hip issue, that oncology be consulted whil e he is still inpatient. We discussed living arrangements if they wish to have the cancer t reated at [facility]. She will need to work at finding housing within [place] since most likely he will be stable and discharged from the hospital. She was very appreciative of the discus nellie and the support as she wades through the complex health of her dad. She has my number and will call me with updates and issue I can help with. documented in this encounter Plan of Treatment Not on filedocumented as of this encounter Visit Diagnoses Not on filedocumented in this encounter"
--- OUTSIDE RECORDS SUMMARY | ~2020-07-12 | XMS | Encounter Summary ---
Demographics + + + | Address | [address] | | | [place] [address] | + + + | Home Phone | | + + + | Preferred Language | Unknown | + + + | Marital Status | | + + + | Muslim Affiliation | Unknown | + + + | Race | White | + + + | Ethnic Group | Not or | + + + Author + + + | Author | [facility] | + + + | Organization | [facility] | + + + | Address | Unknown | + + + | Phone | Unavailable | + + + Support + + +---------+ + | Name | Relationship | Address | Phone | + + +---------+ + | Joan Diaz | ECON | Unknown | | + + +---------+ + Care Team Providers + +------+ + | Care Injection Molding Machine Setter Name | Role | Phone | + [...] | | Clinics at | RN [address] [facility] | | | | | [place] [address] | | | | | [facility] for | [place], [place] | | | | | Health and Healing, | [address] | | | | | [address] | [phone] | | | | | [place], [place] | | | | | | [address] | | | | | | [phone] | | | +--------+ + + + [...] Miscellaneous Notes Telephone Encounter - Meghan Sandoval, ORBERT - 06/30/2020 2:21 PM [facility]TI called and left Joan my personal cell phone to return my call. I am hoping to speak and see what I can do to fac ilitate care for her dad. documented in this encounter Plan of Treatment Not on filedocumented as of this encounter Visit Diagnoses Not on filedocumented in this encounter"
--- OUTSIDE RECORDS SUMMARY | ~2020-07-12 | XMS | Encounter Summary ---
Demographics + + + | Address | [address] | | | [place] [address] | + + + | Home Phone | | + + + | Preferred Language | Unknown | + + + | Marital Status | | + + + | Methodist Affiliation | Unknown | + + + | Race | White | + + + | Ethnic Group | Not or | + + + Author + + + | Author | [facility] | + + + | Organization | [facility] | + + + | Address | Unknown | + + + | Phone | Unavailable | + + + Support + + +---------+ + | Name | Relationship | Address | Phone | + + +---------+ + | Joan Diaz | ECON | Unknown | | + + +---------+ + Care Team Providers + +------+ + | Care Asthma Educator Name | Role | Phone | + +------+ + | Marcie Reich PA-C | PCP | | + +------+ + Encounter Details +--------+ + + + + | Date | Type | Department | Care Team | Description | +--------+ + + + + | 07/04/ | Abstract | Orthopaedics | Note, Orthopedics | | | 2020 | | [facility] [place] [facility] | | | | | for [facility] and | | | | | | Healing [address] | | | | | | [facility] | | | | | | Health and Healing, | | | | | | Building | | | | | | Floor [place], [place] | | | | | | [address] | | | | | | [phone] | | | +--------+ + + + [...] + + documented as of this encounter Plan of Treatment Not on filedocumented as of this encounter Visit Diagnoses Not on filedocumented in this encounter"
--- OUTSIDE RECORDS SUMMARY | ~2020-07-12 | XMS | Encounter Summary ---
Demographics + + + | Address | [address] | | | [place] [address] | + + + | Home Phone | | + + + | Preferred Language | Unknown | + + + | Marital Status | | + + + | Latter-Day Affiliation | Unknown | + + + | Race | White | + + + | Ethnic Group | Not or | + + + Author + + + | Author | [facility] | + + + | Organization | [facility] | + + + | Address | Unknown | + + + | Phone | Unavailable | + + + Support + + +---------+ + | Name | Relationship | Address | Phone | + + +---------+ + | Joan Diaz | ECON | Unknown | | + + +---------+ + Care Team Providers + +------+ + | Care Animal Health Technician Name | Role | Phone | + +------+ + | Marcie Reich PA-C | PCP | | + +------+ + Encounter Details +--------+ + + + + | Date | Type | Department | Care Team | Description | +--------+ + + + + | 06/02/ | Outside | UNKNOWN DEPARTMENT | Other, Faculty | | | 2020 | Records | [address] [facility] | [phone] | | | | | [address] | | | | | | [place], [place] | | | | | | [address] | | | +--------+ + + + [...] Not on filedocumented as of this encounter Procedures + +--------+ + + + | Procedure Name | Priori | Date/Time | Associated Diagnosis | Comments | | | ty | | | | + +--------+ + + + | OUTSIDE RADIOLOGY - | | 06/02/2020 | | Results for this | | CT | | | | procedure are in the | | | | | | results section. | + +--------+ + + + documented in this encounter Results OUTSIDE RADIOLOGY - CT (06/02/2020) + + + | Narrative | Performed At | + + + | | | + + + documented in this encounter Visit Diagnoses Not on filedocumented in this encounter"
--- OUTSIDE RECORDS SUMMARY | ~2020-07-12 | XMS | Encounter Summary ---
Demographics + + + | Address | [address] | | | [place] [address] | + + + | Home Phone | | + + + | Preferred Language | Unknown | + + + | Marital Status | | + + + | Worship Affiliation | Unknown | + + + | Race | White | + + + | Ethnic Group | Not or | + + + Author + + + | Author | [facility] | + + + | Organization | [facility] | + + + | Address | Unknown | + + + | Phone | Unavailable | + + + Support + + +---------+ + | Name | Relationship | Address | Phone | + + +---------+ + | Joan Diaz | ECON | Unknown | | + + +---------+ + Care Team Providers + +------+ + | Care Textile Technologist Name | Role | Phone | + +------+ + PCP | Unavailable | + +------+ + Reason for Visit + +--------+ + | Reason | Onset | Comments | | | Date | | + +--------+ + | Care Coordination | 06/27/ | Navigation | | | 2020 | | + +--------+ + Encounter Details +--------+ + + + + | Date | Type | Department | Care Team | Description | +--------+ + + + + | 06/27/ | Telephone | [facility] | Kory Suazo, | Care Coordination | | 2020 | | Clinics at S | [address] | (Navigation ) | | | | [facility] [address] | | | | | [place] [facility] | [place], [place] | | | | | [facility], | [address] | | | | | [address] | [phone] | | | | | [employer], [place] | | | | | | [address] | | | | | | [phone] | | | +--------+ + + + [...] this encounter Miscellaneous Notes Telephone Encounter - Gosia Tomlinson RN - 06/30/2020 12:37 PM PDTIncoming call to my direc t line, voice message left from patient's daughter, Joan Diaz stating she wanted to check b ack on the status of transferring her father to [facility] by flight. As this was not how I left my previous conversation with her on 06/27/2020 I have escalated this to clinic management fo r guidance on how to respond. 12:3 8 PM PDTTelephone Encounter - Gosia Tomlinson RN - 06/29/2020 7:57 AM PDTPatient will not b e scheduling an outpatient appointment so I have requested intake [facility] close this referral. elephone Encounter - Gosia Tomlinson RN - 06/27/2020 3:30 PM PDTIncoming call from patient's daughter [phone] from [facility]. She stated that she had spoken with ROBERT Christianson about being seen at [facility]: I spoke to Joan. She stated that she and ROBERT Christianson from triage spoke and she was advised avinash the patient could proceed to [facility] emergency department and a possible transfer co d be arranged from there or after an admission. I stated this was likely Meghan Spring RN who is our nurse personalized living manager, and confirmed that the first step would be to go to [facility], request the transfer to [facility]. I stated the [facility] transfer center would then coordinat e the transfer with [facility] and the they would accept the patient as long as [facility] was not on divert. I stated that the patient would then be transported via medical transport. Once at [facility] he would be evaluated, stabilized, if necessary, and an oncology consult from he inpatient team could be requested and discussed. We also reviewed that I did receive the records from [facility] and will be sharing that with the providers. I ensured that Joan has my direct phone number and encouraged her to stay in touch. Electro nically signed by Gosia Tomlinson RN at 06/27/2020 3:39 PM PDTTelephone Encounter - Umu Tomlinson RN - 06/27/2020 9:54 AM PDTCall to patient/patient's daughter Joan, at both numbers I have on 06/27/2020. I left two voice messages stating my role as a nurse navigator at [facility] and requested a call back to my direct line. As of this writing on 06/27/2020 10:15 am I do not have any records to review for this patie nt. Patient's daughter, Joan called me back, 06/27/2020 [id number]. I introduced myself and my role as a nurse navigator at [facility]. She stated that the patient hasn't had regular medical care for the past five years, he had a recent emergency department visit at [place], [place] during which a CT was done. She stated that the family is planning to have him transferred from [facility] to [facility] next week, at which time she is requesting that oncology see him. I clarified - if the patient can come to an ambulatory appointment. She stated, no he is bed bound, has MRSA, i s nearly on hospice. Joan is looking for guidance from me on how to make this process happen. I stated that I wi ll need to look into this further as I work in the outpatient setting and I will need to det ermine if there is a recommendation that the physicians have. 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 Marquez [facility] documented in this enc ounter Plan of Treatment Not on filedocumented as of this encounter Visit Diagnoses Not on filedocumented in this encounter"
--- OUTSIDE RECORDS SUMMARY | ~2020-07-12 | XMS | Clinical Summary ---
Demographics + + + | Address | [address] | | | [place] [address] | + + + | Home Phone | | + + + | Preferred Language | Unknown | + + + | Marital Status | | + + + | Anabaptism Affiliation | Unknown | + + + | Race | White | + + + | Ethnic Group | Not or | + + + Author + + + | Author | [facility] | + + + | Organization | [facility] | + + + | Address | Unknown | + + + | Phone | Unavailable | + + + Support + + +---------+ + | Name | Relationship | Address | Phone | + + +---------+ + | Joan Diaz | ECON | Unknown | | + + +---------+ + Care Team Providers + +------+ + | Care Mortgage Loan Assistant Name | Role | Phone | + +------+ + | Marcie Reich PA-C | PCP | | + +------+ + Source Comments [facility] is fully live on both [email or web address] and [email or web address] InPatient[facility] Allergies Not on File Medications Not on file Active Problems Not on file Encounters +--------+ + + + + | Date | Type | Specialty | Care Team | Description | +--------+ + + + + | 07/05/ | Telephone | Hematology & | Meghan Sandoval, | Care Coordination | | 2019 | | Oncology | RN | | +--------+ + + + + | 07/04/ | Abstract | Orthopedics | Note, Orthopedics | | | 2019 | | | Clinic | | +--------+ + + + + | 06/30/ | Telephone | Hematology | Meghan Sandoval, | Care Coordination | 2019 | | Malignancy | RN | | +--------+ + + + + | 06/30/ | Telephone | Hematology & | Meghan Sandoval, | Care Coordination | 2019 | | Oncology | RN | | +--------+ + + + + | 06/27/ | Telephone | Hematology & | Kory Suazo, | Care Coordination | 2019 | | Oncology | MD | (Navigation ) | +--------+ + + + + | 06/26/ | Abstract | Hematology & | Unknown | | | 2019 | | Oncology | | | +--------+ + + + + | 06/02/ | Outside | | Other, Faculty | | | 2020 | Records | | | | +--------+ + + + + from Last 3 Months Social History + +-------+ +--------+------+ | Tobacco [...] on file | | + + + Last Filed Vital Signs Not on file Plan of Treatment + + +-------+ + | Health Maintenance | Due Date | Last | Comments | | | | Done | | + + +-------+ + | Pneumococcal | | | | | vaccination (1 of 1 | 3 | | | | - PPSV23) | | | | + + +-------+ + | Influenza (Flu) | | | | | vaccination (#1) | 0 | | | + + +-------+ + Procedures + +--------+ + + + | [...] section. | + +--------+ + + + from Last 3 Months Results OUTSIDE RADIOLOGY - CT (06/02/2020) + + + | Narrative | Performed At | + + + | | | + + + from Last 3 Months Insurance + +--------+ +--------+ + +--------+ | Payer | Benefi | Subscriber | Effect | Phone | Address | Type | | | t Plan | ID | nasra | | | | | | / | | Dates | | | | | | Group | | | | | | + +--------+ +--------+ + +--------+ | MEDICARE | MEDICA | [id number] | 11/03/19 | [phone] | [address] | [address] | | | RE A & | | 13-Pre | 1 | [phone] | [address] | | | B | | sent | | [place] | | | | | | | | [id number] | | + +--------+ +--------+ + +--------+ | [employer] | [employer] | [id number] | 01/02/20 | [phone] | [address] | Indemn | | RETIRED PEOPLE | | | 20-Pre | [phone] [id number] | ity | | | | | sent | | [place] | | | | | | | | [phone] | | + +--------+ +--------+ + +--------+ + +--------+ +--------+ + + | Guarantor Name | Accoun | Relation to | Date | Phone | Billing Address | | | t Type | Patient | of | | | | | | | | | | + +--------+ +--------+ + + | Mario Manzanares | Person | Self [birth year] | [address] | | | al/Fam | | 1946 | [phone] | [place] | | | jovi | | | [address] (Home) | [phone] | + +--------+ +--------+ + +"
--- OUTSIDE RECORDS SUMMARY | ~2020-07-12 | XMS | Encounter Summary ---
Demographics + + + | Address | [address] | | | [place] [address] | + + + | Home Phone | | + + + | Preferred Language | Unknown | + + + | Marital Status | | + + + | Muslim Affiliation | Unknown | + + + | Race | White | + + + | Ethnic Group | Not or | + + + Author + + + | Author | [facility] | + + + | Organization | [facility] | + + + | Address | Unknown | + + + | Phone | Unavailable | + + + Support + + +---------+ + | Name | Relationship | Address | Phone | + + +---------+ + | Joan Diaz | ECON | Unknown | | + + +---------+ + Care Team Providers + +------+ + | Care Loan Servicing Representative Name | Role | Phone | + +------+ + PCP | Unavailable | + +------+ + Encounter Details +--------+ + + + + | Date | Type | Department | Care Team | Description | +--------+ + + + + | 06/26/ | Abstract | [facility] | Unknown . | | | 2020 | | [facility] at S | | | | | | [facility] [address] | | | | | | [place] [facility] | | | | | | [facility], | | | | | | [address] | | | | | | [place], [place] | | | | | | [address] | | | | | | [phone] | | | +--------+ + + + [...]
[~2020-07-12 11:51] MED LIST: CRANBERRY200 MG PO; CYCLOBENZAPRINE10 MG PO; FENTANYL1 EAC4 TD; LEVOTHYROXINE150 MCG PO; MORPHINE S10 MG/5 ML PO; OXYCODONE HCL5 MG PO; POLYETHYLENE GL17 GM PO; PREDNISONE20 MG PO; PREDNISONE5 MG PO; PRIMSOL50 MG/5 ML PO; SULFAMETHOXAZO473 M2 PO; TIZANIDINE HCL2 M1 PO; TRAMADOL HCL50 MG PO; ZOFRAN4 MG PO
--- OUTSIDE RECORDS SUMMARY | 2020-07-12 12:18 | XMS ---
PreManage Notification: FILIPE HAHN Security Director Engineering Events No recent Security Events currently on file CRITERIA MET - PDMP CARE PROVIDERS JAVI PAL Physician Strip Presser 06/05/2020-Current PHONE: Unknown Frank has no Care Guidelines for this patient. [facility] VISIT COUNT (12 MO.) 2 [facility] TOTAL 2 NOTE: Visits indicate total known visits. 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
== END 2020-07-13 17:53 | disposition home or self-care (01) ==
LOC: ED 11:51
DX: N39.0 Urinary tract infection, site not specified (principal); K22.8 Other specified diseases of esophagus; M06.9 Rheumatoid arthritis, unspecified; M00.9 Pyogenic arthritis, unspecified; Z87.891 Personal history of nicotine dependence; Z79.899 Other long term (current) drug therapy
CPT/HCPCS: 71045; 80053; 81001; 83690; 84484; 85025; 96361; 96365; 96366; 96375; 96376; 99285-25; J1720; J1956; J7030; J7040; J7121